=== PATIENT | female | born 2000 | race Caucasian/White ===

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

== ENCOUNTER → 2021-04-20 12:22 | Outpatient (CLI) | payer OTHER, SELFPAY ==
--- NOTE | ~2021-04-20 | XR_ITS ---
EXAMINATION: XR chest 2V 04/20/2021 12:56 INDICATION: Cough PROCEDURE: 2 view chest COMPARISON: 11/26/2008 FINDINGS: The lungs are clear. The cardiomediastinal silhouette is within normal limits. There are no pleural effusions. There is no pneumothorax suspected. IMPRESSION: 1: NO ACUTE CARDIOPULMONARY DISEASE. Reviewed, dictated and finalized at location A. [employer] WORK[employer]
== END ==
PROVIDERS: PCP Family Medicine; Visit Provider Family Medicine
DX: R05.9 Cough, unspecified (principal)
CPT/HCPCS: 71046

== ENCOUNTER 2021-04-21 00:56 | Emergency (ER) | payer OTHER, SELFPAY ==
[2021-04-21] VITALS (9 sets, daily range): BP systolic 109–138; BP diastolic 58–81; PULSE 110–143; RESP 18–24; TEMP 36.7; O2SAT 97–100
--- NOTE | ~2021-04-21 | CT_ITS ---
EXAMINATION: CTA chest PE protocol DATE: 04/21/2021 03:46 INDICATION: Shortness of breath. Chest pain. TECHNIQUE: Computed tomography angiography (CTA) of the chest was performed with 100 mL Omnipaque-350 intravenous contrast timed to evaluate the pulmonary arteries. Coronal maximum intensity projection 3D-reconstructions were created by the technologist. Automated exposure control and iterative reconst ruction technique were employed. The dose-length product was 459.88 mGy-cm. COMPARISON: Chest 2 views 04/20/2021 FINDINGS: There is no pneumonia or pleural effusion. The heart size is normal. No pericardial effusio n. There is no pulmonary embolus. The bones are unremarkable. IMPRESSION: 1. No pulmonary embolus. Reviewed, dictated and finalized at location A. MENT COIL WINDER IMPRESSION: 1. No pulmonary embolus.
--- NOTE | 2021-04-21 01:24 | ECG_ITS ---
Measurements Intervals Drew Rate: 148 P: 85 NH: 117 QRS: 90 QRSD: 78 T: 38 QT: 316 QTc: 496 Interpretive Statements SINUS TACHYCARDIA WITH SHORT NH INTERVAL, POSSIBLE ATRIAL FLUTTER BASELINE ARTIFACT NONSPECIFIC ST & T-WAVE ABNORMALITY ABNORMAL ECG NO PREVIOUS ECG AVAILABLE FOR COMPARISON Electronically Signed On 04-21-2021 14:27:01 FOOD PRESERVATION SCIENTIST by Shoaib Campbell M.D.
[2021-04-21 01:46] LABS: Basophils Absolute Auto 0.1 K/mm3 (0.0-0.1); Basophils Percent Auto 0.5 % (0.2-1.2); Eosinophils Percent Auto 8.7 % (0-4.4); Hematocrit 42.4 % (37.0-47.0); Hemoglobin 14.3 g/dL (12.0-15.0); Immature Granulocyte Absolute 0.04 K/mm3 (0.00-0.031); Immature Granulocyte Percent A 0.4 % (0-0.5); Mean Corpuscular HGB Conc 33.7 g/dl (32-36); Mean Corpuscular Hemoglobin 30.7 pg (26-34); Mean Platelet Volume 11.4 fl (7.4-10.4); Monocytes Absolute Auto 1.1 K/mm3 (0.1-0.6); Monocytes Percent Auto 9.2 % (2.6-8.5); Neutrophils Absolute Auto 5.1 K/mm3 (1.3-6.7); Neutrophils Percent Auto 45.2 % (45.5-73.1); Platelet Count Result 235 k/mm3 (150-375); Red Blood Count 4.66 M/mm3 (4.2-5.4); Red Cell Distribution Width 12.6 % (11.5-14.5); White Blood Count 11.4 K/mm3 (4.5-10.0)
[2021-04-21] MEDS: methylPREDNISolone SOD SUCC 125 MG VIAL IV PUSH (01:51)
[2021-04-21] MEDS: SODIUM CHLORIDE 0.9% IV 1,000 ML 999 ML IV CONT (01:51)
[2021-04-21 01:59] LABS: Alanine Aminotransferase 26 U/L (4-35); Albumin Level 4.5 g/dL (3.7-5.6); Alkaline Phosphatase 65 U/L (45-116); Anion Gap 7 mmol/L (8-16); Aspartate Amino Transferase 36 U/L (14-36); Bilirubin,Total 0.6 mg/dL (0.2-1.3); Blood Urea Nitrogen 8 mg/dL (8-21); Calcium 8.8 mg/dL (8.9-10.7); Carbon Dioxide 21 mmol/L (22-30); Chloride 111 mmol/L (98-107); Estimated CRCL calculation 154 ml/min; Estimated Glomerular Filt Rate > 60; Glucose 104 mg/dL (65-110); Potassium 4.5 mmol/L (3.4-5.0); Sodium 139 mmol/L (134-143)
--- NOTE | 2021-04-21 04:17 | ED.SOB ---
HPI - SOB/Dyspnea General Chief Complaint: Shortness of Breath/Dyspnea Stated Complaint: SOB Time Seen by Provider: 04/21/21 01:06 History of Present Illness HPI Narrative: Patient is a 20-year-old female who presents ER with shortness of breath. Patient reports that she was diagnosed with COVID 03/2021. Since then she has been having some persistent shortness of breath. No chest pain or chest pressure. No racing heart however patient was found to be tachycardic in the 130s upon arrival to the ER. Patient saw her PCP yesterday who placed her on a Z-Jan as well as prednisone taper. Patient's been having sinus congestion with postnasal drip. Symptoms were not improving so she came to the ER. Related Data Allergies Allergy/AdvReac Type Severity Reaction Status Date / Time No Known Allergies Allergy Verified 04/20/21 11:32 Review of Systems Review of Systems: All systems reviewed & are unremarkable except as noted in HPI and below Constitutional: Constitutional: Denies chills, Denies fever(s) and Denies weakness ENT: Reports nasal congestion and Denies sore throat Cardiovascular: Cardiovascular: Denies chest pain, Reports rapid heart rate and Denies radiating jaw, neck or arm pain Respiratory: Respiratory: Reports cough, Reports dyspnea and Reports wheezing Gastrointestinal: Gastrointestinal: Denies abdominal pain, Denies nausea and Denies vomiting Musculoskeletal: Musculoskeletal: Denies arthralgias, Denies joint swelling and Denies muscle cramps PMFSH Past Medical History Medical History (Updated 04/21/21 @ 04:58 by Rosendo Schwartz MD) Anxiety Asthma Interstitial cystitis Surgical History Surgical History No significant past surgical history Family History Family History Father Asthma Patient's father is in good health Mother Patient's mother is in good health Social History Social History Smoking status: Never smoker Second hand tobacco smoke exposure: No Alcohol intake: never Substance use: never Substance use type: does not use Gender identity (if verbalized by the patient): Female Exam Narrative: GENERAL: Well-appearing, well-nourished, and in no acute distress. HEAD: Normocephalic, atraumatic. EYES: PERRL and EOMI CHEST: Faint diffuse wheezing. No respiratory distress. HEART: Tachycardic regular. Normal peripheral pulses. ABDOMEN: Soft, nontender, nondistended. EXTREMITIES: Normal range of motion. No edema. SKIN: Warm, dry, no rash. NEURO: Alert and oriented x3. PSYCH: Normal mood and affect. Course Course Emergency Course: Patient has persistent tachycardia despite IV fluid. While she is getting her nebulizer treatment she did decrease to 106 bpm. Patient still has some wheezing. She reports she is breathing much better after the hour-long nebulizer treatment. She does not wish to have a repeat treatment. She was supposed to be started on prednisone today by her PCP but they did not actually prescribe it. We gave her Solu-Medrol here and we will discharge her with some prednisone for home. Discussed signs and symptoms to return to the ER and patient verbalized understanding as did her follow-up. No evidence of PE on CTA. Vital Signs Vital signs: Vital Signs Temperature 98.1 F 04/21/21 01:01 Pulse Rate 143 H 04/21/21 01:01 Respiratory Rate 22 H 04/21/21 01:01 Blood Pressure 138/81 04/21/21 01:01 Pulse Oximetry 99 04/21/21 01:01 Temperature 98.1 F 04/21/21 01:01 Pulse Rate 136 H 04/21/21 03:59 Respiratory Rate 18 04/21/21 03:59 Blood Pressure 138/81 04/21/21 01:01 Pulse Oximetry 100 04/21/21 03:59 MDM - SOB/Dyspnea Lab Data Result diagrams: 04/21/21 01:41 04/21/21 01:41 Labs: Lab Results 04/21/21 04/21/21 Range/Units 01:41 0
== END 2021-04-21 05:08 | disposition home or self-care (01) ==
PROVIDERS: Emergency Provider Emergency Medicine; PCP Family Medicine
DX: J45.909 Unspecified asthma, uncomplicated (principal); N30.10 Interstitial cystitis (chronic) without hematuria; Z86.16 Personal history of COVID-19; R00.0 Tachycardia, unspecified; R94.31 Abnormal electrocardiogram [ECG] [EKG]
CPT/HCPCS: 36415; 71275; 80053; 81025; 85025; 93005; 94640; 96361; 96374; 99284; J2930; J7030; Q9967

== ENCOUNTER 2021-05-08 18:59 | Emergency (ER) | payer OTHER, SELFPAY ==
[2021-05-08 19:07] VITALS: BP 120/77; PULSE 142; RESP 16; TEMP 37.8; O2SAT 98
--- NOTE | 2021-05-08 19:16 | ED.URI ---
HPI - URI/Sore Throat General Chief Complaint: Shortness of Breath/Dyspnea Stated Complaint: sob Time Seen by Provider: 05/08/21 19:16 Source: patient, family, RN notes reviewed and old records reviewed Mode of arrival: ambulatory Limitations: no limitations History of Present Illness HPI Narrative: 20-year-old female with a history of asthma presents to the psychiatric with cough and wheezing. Cough approximately 1 week ago, wheezing started approximately 2 days ago Has a primary care doctor's office appointment tomorrow at 1130. Related Data Home Medications Medication Instructions Recorded Confirmed buspirone 5 mg PO TID 05/08/21 05/08/21 levocetirizine [Xyzal] 5 mg PO DAILY 05/08/21 05/08/21 Allergies Allergy/AdvReac Type Severity Reaction Status Date / Time No Known Allergies Allergy Verified 04/20/21 11:32 Review of Systems Review of Systems: All systems reviewed & are unremarkable except as noted in HPI and below Constitutional: Constitutional: Reports no additional constitutional complaints, Denies chills, Denies fever(s) and Denies headache(s) Eyes: Eyes: Reports no additional eye complaints ENT: Reports as per HPI, Denies vertigo, Denies dizziness, Denies headache(s), Denies nasal congestion and Denies sore throat Cardiovascular: Cardiovascular: Reports no additional cardiovascular complaints, Denies chest pain, Denies syncope, Denies rapid heart rate and Denies dyspnea Respiratory: Respiratory: Reports as per HPI, Reports cough, Reports dyspnea and Reports wheezing Gastrointestinal: Gastrointestinal: Reports no additional gastrointestinal complaints, Denies abdominal pain, Denies diarrhea, Denies nausea and Denies vomiting Musculoskeletal: Musculoskeletal: Reports no additional musculoskeletal complaints, Denies back pain, Denies muscle cramps and Denies numbness Integumentary/Breasts: Skin/Breast: Reports system reviewed and no additional complaints, except as docu Neurologic: Reports system reviewed and no additional complaints, except as documented, Denies vertigo, Denies dizziness, Denies syncope, Denies headache(s), Denies focal weakness and Denies numbness Psychiatric: Psychiatric: Reports no additional psychiatric complaints Allergic/Immunologic: Allergic/Immunologic: Reports no additional allergic/immunologic complaints [facility] Past Medical History Medical History (Updated 05/08/21 @ 21:02 by Jalyn Rosado APRN) Anxiety Asthma Interstitial cystitis Surgical History Surgical History No significant past surgical history Family History Family History Father Asthma Patient's father is in good health Mother Patient's mother is in good health Social History Social History Smoking status: Never smoker Second hand tobacco smoke exposure: No Alcohol intake: never Substance use: never Substance use type: does not use Gender identity (if verbalized by the patient): Female Comments At the time of my signature, I reviewed and agree with the nursing past medical, surgical, social, and family history. There is no relevant family history pertinent to the patient complaint. Exam Const: General: cooperative, healthy appearing, no acute distress, well developed and alert Nutritional Appearance: well nourished Orientation/consciousness: patient oriented x3 Limitations: no limitations HENMT: Head: normal to inspection Ears: external ears normal, EAC's normal and TM abnormal with fluid behind the TM General nose exam: Nasal discharge present clear Throat: posterior oropharynx normal Eyes: Conjunctivae: conjunctivae normal Pupils: Equal, round and reactive pupils present Neck: Neck: normal visual inspection, no lymphadenopathy and no meningeal signs Chest: Chest palpation & inspection: normal inspection of the naa
[2021-05-08 19:24] VITALS: PULSE 140; RESP 20; O2SAT 98
[2021-05-08] MEDS: IPRATROPIUM BR 0.02% INH SOLN 0.5 MG/2.5 ML VIAL INHALATION (19:30)
[2021-05-08] MEDS: ALBUTEROL SULFATE NEB 2.5 MG/3 ML INH INHALATION (19:31)
[2021-05-08] MEDS: predniSONE 20 MG TABLET 40 MG PO (19:35)
[2021-05-08 19:50] VITALS: O2SAT 99
== END 2021-05-08 20:05 | disposition home or self-care (01) ==
PROVIDERS: Emergency Provider Nurse Practitioner; PCP Family Medicine
DX: J45.901 Unspecified asthma with (acute) exacerbation (principal); F41.9 Anxiety disorder, unspecified
CPT/HCPCS: 87804; 94640; 99213; G0463; J7512

== ENCOUNTER 2021-06-04 13:27 | Outpatient (CLI) | payer OTHER, SELFPAY ==
--- NOTE | 2021-06-11 12:49 | WPDPFTINT ---
PFT Procedure Performed PFT Procedure Performed Plethysmography (Lung Vol) Diffusing Cap (DLCO) Flow Vol Loop Spirometry w/o Bronchodil PFT Interpretation DOS: 06/04/2021 REQUESTING: Dr Gissel Tineo REASON FOR TESTING: Asthma PULMONARY FUNCTION TESTS Results are reliable and reproducible. Spirometry: FEV1 pre bronchodilator is 77% predicted, 2.37 L. The pre bronchodilator FVC is 102%, 3.54 L. The FEV1/ FVC ratio is decreased 67% consistent with airflow obstruction. The QIH62-26 is decreased at 37%. No bronchodilator was administered. Lung volumes: The total lung capacity is mildly increased 129% predicted, 5.36 L. The slow vital capacity is 105% predicted which is normal. the residual volume is 192%, consistent with severe air trapping. RV/TLC is higher than predicted, consistent with air trapping. Elevated airway resistance, 248%. Diffusion: DLCO 93%, normal. Flow volume loop: There is mild scooping of the expiratory limb. IMPRESSION: There is mild obstructive ventilatory impairment which is more severe in the small airways, mild hyperinflation and severe air trapping with normal diffusion. No bronchodilator was administered. This pattern can be seen in asthma. Ofelia Guevara MD
== END 2021-06-04 13:28 | disposition home or self-care (01) ==
LOC: ANHPFT 13:29
PROVIDERS: PCP Family Medicine; Visit Provider Family Medicine
DX: J45.909 Unspecified asthma, uncomplicated (principal)
CPT/HCPCS: 94375; 94726; 94729

== ENCOUNTER 2021-12-19 10:42 | Emergency (ER) | payer OTHER, SELFPAY ==
[2021-12-19 10:49] VITALS: BP 139/76; PULSE 117; RESP 18; TEMP 37.4; O2SAT 100
--- NOTE | 2021-12-19 11:23 | ED.URI ---
HPI - URI/Sore Throat General Chief Complaint: Upper Respiratory Infection Stated Complaint: congestion Time Seen by Provider: 12/19/21 11:12 Source: patient Mode of arrival: ambulatory Limitations: no limitations History of Present Illness HPI Narrative: Patient presents today complaining of a 3 day history of nasal congestion, postnasal drip, and mild cough. Denies fever, sore throat cough , shortness of breath. Two to go home COVID-19 test today and it was negative. She has been taking DayQuil and NyQuil without relief. Patient also takes daily Xyzal and Singulair for her asthma. Related Data Allergies Allergy/AdvReac Type Severity Reaction Status Date / Time No Known Allergies Allergy Verified 12/19/21 10:56 Review of Systems Review of Systems: CONSTITUTIONAL: Denies body aches, fever, chills, or sweats. EYES: Denies visual changes, redness, or discharge. ENT: Denies rhinorrhea, sore throat, or otalgia.+ Congestion, postnasal drip CARDIOVASCULAR: Denies chest pain, palpitations, or edema. RESPIRATORY: Denies dyspnea.+ cough GASTROINTESTINAL: Denies abdominal pain, nausea, vomiting, or diarrhea. GENITOURINARY: Denies dysuria or hematuria. SKIN: Denies rash, itching, or wounds. MUSCULOSKELETAL: Denies back pain, joint pain, or myalgia. NEUROLOGIC: Denies headache, numbness, tingling, or weakness. PSYCH: Denies depression or anxiety. [facility] Past Medical History Medical History Anxiety Asthma Interstitial cystitis Surgical History Surgical History No significant past surgical history Family History Family History Father Asthma Patient's father is in good health Mother Patient's mother is in good health Social History Social History Smoking status: Never smoker Second hand tobacco smoke exposure: No Alcohol intake: never Substance use: never Substance use type: does not use Gender identity (if verbalized by the patient): Female Sexual Orientation (if Verbalized by the Patient): Straight or Heterosexual Spiritual care concerns: No Agree to blood products: Yes Comments At time of signature, I have reviewed and agree with nursing past medical, surgical, social and family history unless otherwise noted. Please see nursing chart for further information. There is no relevant family history pertinent to the presenting complaint Exam Narrative: GENERAL: Well-appearing, well-nourished, and in no acute distress. HEAD: Normocephalic, atraumatic. EYES: EOMI. No redness or drainage. Conjunctivae normal. ENT: Mucous membranes pink and moist. Nares clear. No rhinorrhea. TMs normal bilaterally. Throat normal. Uvula midline. NECK: Normal AROM. Supple. No lymphadenopathy. CHEST: No respiratory distress. Clear to auscultation. HEART: Regular rhythm. + tachycardia.No murmur appreciated. Normal peripheral pulses. EXTREMITIES: Normal range of motion. No edema. SKIN: Warm, dry, no rash. Capillary refill normal. Normal skin turgor. NEURO: No focal deficits. Alert and oriented x3. Gait steady. PSYCH: Normal affect. No signs of depression or anxiety. Course Course Level of Care: Express Care Visit Vital Signs Vital signs: Vital Signs Temperature 99.4 F 12/19/21 10:49 Pulse Rate 117 H 12/19/21 10:49 Respiratory Rate 18 12/19/21 10:49 Blood Pressure 139/76 12/19/21 10:49 Pulse Oximetry 100 12/19/21 10:49 Oxygen Delivery Room Air 12/19/21 10:49 Temperature 99.4 F 12/19/21 10:49 Pulse Rate 117 H 12/19/21 10:49 Respiratory Rate 18 12/19/21 10:49 Blood Pressure 139/76 12/19/21 10:49 Pulse Oximetry 100 12/19/21 10:49 Oxygen Delivery Room Air 12/19/21 10:49 Reviewed. Pt has been instructed to follow up
== END 2021-12-19 11:37 | disposition home or self-care (01) ==
PROVIDERS: Emergency Provider Nurse Practitioner; PCP Family Medicine
DX: J06.9 Acute upper respiratory infection, unspecified (principal); J45.909 Unspecified asthma, uncomplicated
CPT/HCPCS: 99211; G0463

== ENCOUNTER 2023-10-25 17:18 | Emergency (ER) | payer OTHER, SELFPAY ==
[2023-10-25 17:31] VITALS: BP 127/60; PULSE 100; RESP 16; TEMP 37.7; O2SAT 100
[2023-10-25 17:33] VITALS: BP 127/60; PULSE 100; RESP 16; TEMP 37.7; O2SAT 100
--- NOTE | 2023-10-25 17:48 | ED.URI ---
HPI - URI/Sore Throat General Chief Complaint: Upper Respiratory Infection Stated Complaint: sore throat Time Seen by Provider: 10/25/23 17:49 Source: patient Mode of arrival: ambulatory Limitations: no limitations History of Present Illness HPI Narrative: 22-year-old female presents with complaint of nasal congestion, postnasal drainage, sore throat and mild cough for 5 days. Afebrile. Patient not taking any [id number] medications to treat her symptoms. States just going to let them run their course . Patient now concerned why symptoms are not improving. No chest pain or shortness of breath. All systems reviewed and negative except as noted above. Related Data Home Medications Medication Instructions Recorded Confirmed norethindrone 1.5 mg-ethinyl 1 tablet PO DAILY 10/25/23 10/25/23 estradiol 30 mcg(21)/iron 75 mg(7) tablet ( FE 1.07/16 (28)) Allergies Allergy/AdvReac Type Severity Reaction Status Date / Time No Known Allergies Allergy Verified 10/25/23 17:31 Review of Systems Review of Systems: CONSTITUTIONAL: Denies fever, chills, or sweats. EYES: Denies visual changes, redness, or discharge. ENT: Reports rhinorrhea, congestion, sore throat. Denies otalgia. CARDIOVASCULAR: Denies chest pain, palpitations, or edema. RESPIRATORY: reports cough. Denies dyspnea. GASTROINTESTINAL: Denies abdominal pain, nausea, vomiting, or diarrhea. GENITOURINARY: Denies dysuria or hematuria. SKIN: Denies rash or itching. MUSCULOSKELETAL: Denies back pain, joint pain, or myalgia. NEUROLOGIC: Denies headache, numbness, or weakness. PSYCHIATRIC: Denies anxiety or depression. All other systems reviewed are negative, except as documented in HPI. [facility] Past Medical History Medical History Anxiety Asthma Asthma exacerbation Flow murmur Interstitial cystitis UTI (urinary tract infection) Surgical History Surgical History No significant past surgical history Family History Family History Father Asthma Patient's father is in good health Mother Patient's mother is in good health Social History Social History (Reviewed 12/10/22 @ 11:38 by Ani Morales Social History: Caffeine- 2 cups daily Smoking status: Never smoker Second hand tobacco smoke exposure: No Alcohol intake: never Substance use: never Substance use type: does not use Lack of Transportation: No Lack of Food: Never True Current Housing: I Have Housing Concerned About Future Housing: No Difficulty Paying Gas/Electric Bills: No Difficulty Paying for Meds: No Currently Unemployed: No Education: High School Diploma/GED Difficulty w/ Childcare or Family Care: No Living arrangements: with family Gender identity (if verbalized by the patient): Female Sexual Orientation (if Verbalized by the Patient): Straight or Heterosexual Spiritual care concerns: No Agree to blood products: Yes Comments At time of signature, agree with nursing past medical, surgical, social and family history. There is no relevant family history pertinent to the presenting complaint. Exam Narrative: GENERAL: This is a well-nourished, well-developed patient, in no apparent distress. HEAD: normocephalic, atraumatic. EYES: PERRL. Sclera clear/white. Vision is grossly intact. EARS: External ears normal, auditory canals clear and without drainage, TMs normal without perforation. Hearing grossly intact. NOSE: External nose normal with clear nasal drainage, erythema to bilateral nares THROAT: Mucous membranes moist, erythema with clear postnasal drainage. No swelling or exudates. NECK: Neck supple, non-tender without lymphadenopathy, masses or thyromegaly. CARDIOVASCULAR: Regular rate and rhythm without murmurs, gallops, or rubs. RESPIRATORY: Clear to au
[2023-10-25 18:10] LABS: EDSTREPNEGPOS1 Negative (Negative)
== END 2023-10-25 18:17 | disposition home or self-care (01) ==
PROVIDERS: Emergency Provider Nurse Practitioner Family; PCP Family Medicine
DX: J01.90 Acute sinusitis, unspecified (principal); Z20.822 Contact with and (suspected) exposure to COVID-19; J45.909 Unspecified asthma, uncomplicated
CPT/HCPCS: 87081; 87426; 87880; 99213; G0463

== ENCOUNTER 2024-10-04 17:22 | Emergency (ER) | payer OTHER, SELFPAY ==
[2024-10-04 17:31] VITALS: BP 133/69; PULSE 108; RESP 20; TEMP 37; O2SAT 98
--- NOTE | 2024-10-04 17:35 | ED.BACK ---
HPI - Back Pain/Injury General Chief Complaint: Back Pain/Injury Stated Complaint: lower back pain Time Seen by Provider: 10/04/24 17:35 Source: patient Mode of arrival: ambulatory Limitations: no limitations History of Present Illness HPI Narrative: 23-year-old female presented for complaint of right lower back pain. Onset 1 week. Denies known injury. however today she felt a pop to the right lower back when she bent over at work. Pain starts in the right posterior hip and radiates up to the low back. Rates pain 8/. patient was prescribed steroid and muscle relaxer by PCP 3 days ago which she has been taking. Denies pain radiating into the hips or legs, numbness, tingling, weakness of the lower extremities, or change in gait, saddle paresthesia or loss of bowel or bladder. Related Data Allergies Allergy/AdvReac Type Severity Reaction Status Date / Time No Known Allergies Allergy Verified 10/04/24 17:36 Review of Systems Review of Systems: CONSTITUTIONAL: Denies body aches, fever, chills EYES: Denies visual changes CARDIOVASCULAR: Denies chest pain, palpitations, or edema. RESPIRATORY: Denies cough or dyspnea. GASTROINTESTINAL: Denies abdominal pain, nausea, vomiting, or diarrhea. SKIN: Denies rash, itching, or wounds. MUSCULOSKELETAL: reports back pain NEUROLOGIC: Denies headache, numbness, tingling, or weakness. All systems reviewed & are unremarkable except as noted in HPI and below PMFSH Past Medical History Medical History Flow murmur UTI (urinary tract infection) Asthma exacerbation Anxiety Asthma Interstitial cystitis Surgical History Surgical History No significant past surgical history Family History Family History Father Asthma Patient's father is in good health Mother Patient's mother is in good health Social History Social History Social History: Caffeine- 2 cups daily Smoking status: Never smoker Second hand tobacco smoke exposure: No Alcohol intake: never Substance use: never Substance use type: does not use Lack of Transportation: No Lack of Food: Never True Current Housing: I Have Housing Concerned About Future Housing: No Difficulty Paying Gas/Electric Bills: No Difficulty Paying for Meds: No Currently Unemployed: No Education: High School Diploma/GED Difficulty w/ Childcare or Family Care: No Living arrangements: with family Gender identity (if verbalized by the patient): Female Sexual Orientation (if Verbalized by the Patient): Straight or Heterosexual Spiritual care concerns: No Agree to blood products: Yes Comments At time of signature, I have reviewed and agree with nursing past medical, surgical, social and family history unless otherwise noted. Please see nursing chart for further information. There is no relevant family history pertinent to the presenting complaint Exam Narrative: GENERAL: Well-appearing EYES: conjunctivae clear NECK: Supple. full ROM CHEST: Speaks in full sentences. No respiratory distress. HEART: Regular rate and rhythm. Normal and equal peripheral pulses. MUSC: Right paraspinal tenderness, right posterior hip tender with deep palpation c/w SI joint. No Vertebral point tenderness. BLEs with normal strength and sensation, normal range of motion. pulse palpable and equal bilaterally, skin warm, dry, pink. Capillary refill less than 3 seconds. Gait steady. SKIN: Warm, dry, no rash. NEURO: Alert and oriented x3. Course Course Emergency Course: Patient is aware of diagnosis, understands and agrees to treatment plan. Anticipatory guidance given. Patient agrees to follow-up as directed and is aware of reasons to seek care at the emergency department. Portions of this record may have been created with voice recognition software Level of Care: Express Care Visit Vital Signs Vital signs: Vital Signs Temperature 98.6 F 10/04/24 17:31 Pulse Rate 108 H 10/04/24 17:31 Respiratory Rate 20 10/04/24 17:31 Blood Pressure 133/69 10/04/24 17:31 Pulse Oximetry 98 10/04/24 17:31 Oxygen Delivery Room Air 10/04/24 17:31 Temperature 98.6 F 10/04/24 17:31 Pulse Rate 108 H 10/04/24 17:31 Respiratory Rate 20 10/04/24 17:31 Blood Pressure 133/69 10/04/24 17:31 Pulse Oximetry 98 10/04/24 17:31 Oxygen Delivery Room Air 10/04/24 17:31 Reviewed MDM - Back Pain/Injury MDM Narrative Medical decision making narrative: discussed physical exam findings. Shared decision making patient declined imaging at this time. Patient will continue the steroids and muscle relaxer as previously prescribed by PCP 3 days ago. Advised supportive measures and s/s to go to the ER. Pt is stable and appropriate for outpt treatment and follow up with pcp. Differential Diagnosis Differential diagnosis: Likely lumbar radiculopathy, sciatica, strain of lumbar region, renal colic, pyelonephritis and discitis Discharge Plan Discharge Clinical Impression: Strain of lumbar region Patient Disposition: Home Condition: Stable Instructions: Antibiotic Form, Acute Low Back Pain (ED) Additional Instructions: Please follow up with your Primary Care Doctor within 72 hours - call for an appointment. Avoid lifting. pushing. pulling, or anything that worsens the pain. Walking and other gentle exercising several times a week has been shown to improve back pain; bed rest is not recommended. take the previously prescribed steroid and muscle relaxer as directed Over the counter pain cream like icy/hot or biofreeze, or Salon pas/lidocaine 4% patch. You may apply heat or cold to the area as needed. go to the ER If you experience any worsening pain, swelling, numbness, weakness, problems with bladder or bowel function, weakness or loss of feeling in one or both of your legs, or any other serious concerns. Patient Language: Trinidadian Prescriptions: No Action albuterol sulfate 2.5 mg /3 mL (0.083 %) solution for nebulization 2.5 mg inhalation Q4-6H PRN (Reason: shortness of breath or wheezing) Qty: 90 0RF (DME) Personal Best Full Range Device See Rx Instructions .Route Qty: 1 0RF Rx Instructions: As directed fluoxetine 20 mg capsule 20 mg PO DAILY Qty: 90 3RF montelukast [Singulair] 10 mg tablet 10 mg PO DAILY Qty: 90 3RF albuterol sulfate 90 mcg/actuation HFA aerosol inhaler See Rx Instructions .ROUTE .COMPLEX Qty: 8.5 0RF Dose Instruction: INHALE 2 PUFFS BY MOUTH FOUR TIMES DAILY NEEDED FOR SHORTNESS OF BREATH OR WHEEZING Rx Instructions: INHALE 2 PUFFS BY MOUTH FOUR TIMES DAILY NEEDED FOR SHORTNESS OF BREATH OR WHEEZING-NEEDS APPOINTMENT FOR FURTHER REFILLS norethindrone-e.estradiol-iron [Junel FE 1.5/30 (28)] 1.5 mg-30 mcg (21)/75 mg (7) tablet 1 tablet PO DAILY Qty: 84 3RF fluticasone propion-salmeterol [Wixela Inhub] 250-50 mcg/dose blister with device See Rx Instructions .ROUTE .COMPLEX Qty: 60 1RF Dose Instruction: INHALE 1 PUFF BY MOUTH TWICE DAILY Rx Instructions: INHALE 1 PUFF BY MOUTH TWICE DAILY methylprednisolone [Medrol (Jan)] 4 mg tablets,dose pack See Rx Instructions PO PER PKG DIR Qty: 21 0RF Rx Instructions: PO PER PKG DIR methocarbamol 750 mg tablet 750 mg PO TID PRN (Reason: muscle pain) Qty: 30 1RF Follow-up/Referrals: John Jacobs MD [Primary Care Provider] -
== END 2024-10-04 17:51 | disposition home or self-care (01) ==
PROVIDERS: Emergency Provider Nurse Practitioner Family; PCP Family Medicine
DX: S39.012A Strain of muscle, fascia and tendon of lower back, initial encounter (principal); X58.XXXA Exposure to other specified factors, initial encounter; F41.9 Anxiety disorder, unspecified; J45.909 Unspecified asthma, uncomplicated
CPT/HCPCS: 99211; G0463

== ENCOUNTER 2024-12-28 15:28 | Outpatient (CLI) | payer OTHER, SELFPAY ==
--- NOTE | ~2024-12-28 | US_ITS ---
EXAMINATION: US pelvic complete, 12/28/2024 15:59 TELECASTING ENGINEER HISTORY: Pelvic Pain Comparison: None Technique: Castro-scale and color Doppler images were obtained. Findings: Uterus: Uterus anteverted 7.6 x 2.8 x 4.2 cm. . Endometrium 5 mm. Right Ovary:Right ovary 2.5 x 1.4 x 2.1 cm, no adnexal mass, normal flow. Left Ovary: Left ovary 2.3 x 1.5 x 2.6 cm, no adnexal mass, normal flow Free Fluid: None Impression: No acute abnormality. Reviewed, dictated and finalized at location P. CASTING ENGINEER Impression: No acute abnormality.
== END 2024-12-28 15:29 | disposition home or self-care (01) ==
LOC: MICIMG 15:29
PROVIDERS: PCP Family Medicine
DX: R10.20 Pelvic and perineal pain unspecified side (principal)
CPT/HCPCS: 76856